=== PATIENT | female | born 1940 | race Caucasian/White ===

== ENCOUNTER 2017-08-29 14:15 | Emergency (ER) | payer MEDICARE, OTHER ==
[2017-08-29] MEDS ORDERED: methylPREDNISolone Sodium Succinate 125 MG/2 ML SDV IM ONE (15:19)
--- NOTE | 2017-08-29 15:25 | EDM.PDOC ---
ED HPI GENERAL MEDICAL PROBLEM - General Chief Complaint: Skin Complaint Stated Complaint: POISON ROXANNA Time Seen by Provider: 08/29/17 15:20 Source of Information: Reports: Patient History Limitations: Reports: No Limitations - History of Present Illness INITIAL COMMENTS - FREE TEXT/NARRATIVE: With poison roxanna while doing yard work about 10 days ago to left forearm. Was resolving. Now spreading again. Also rash to upper torso and chest since switching detergents. Also with new cold sore forming over the last 4 days. Onset: Gradual Duration: Getting Worse Location: Reports: Face, Neck, Chest, Abdomen, Back, Upper Extremity, Left Severity: Mild Improves with: Reports: None Worsens with: Reports: None Associated Symptoms: Reports: No Other Symptoms Generalized Pain Score (Numeric/FACES): 5 - Related Data Allergies Allergy/AdvReac Type Severity Reaction Status Date / Time No Known Allergies Allergy Verified 08/29/17 15:03 Home Meds: Home Meds Aspirin [Lo-Dose Aspirin EC] 81 mg PO DAILY 08/29/17 [History] Citalopram Hydrobromide [Celexa] 10 mg PO DAILY 08/29/17 [History] Levothyroxine Sodium [Synthroid] 1 tab PO DAILY 08/29/17 [History] Multivitamin [Multivitamins] 1 tab PO DAILY 08/29/17 [History] Simvastatin [Zocor] 10 mg PO BEDTIME 08/29/17 [History] Past Medical History HEENT History: Reports: Impaired Vision Cardiovascular History: Reports: High Cholesterol [employer] History: Reports: Psychiatric History: Reports: Anxiety, Depression Endocrine/Metabolic History: Reports: Hypothyroidism - Infectious Disease History Infectious Disease History: Reports: Chicken Pox - Past Surgical History HEENT Surgical History: Reports: Adenoidectomy, Tonsillectomy GI Surgical History: Reports: Colonoscopy Social & Family History - Tobacco Use Smoking Status *Q: Never Smoker Second Hand Smoke Exposure: No - Caffeine Use Caffeine Use: Reports: Coffee, Soda - Alcohol Use Days Per Week of Alcohol Use: 7 Number of Drinks Per Day: 1 Total Drinks Per Week: 7 - Recreational Drug Use Recreational Drug Use: No ED ROS GENERAL - Review of Systems Review Of Systems: See Below Constitutional: Reports: No Symptoms HEENT: Reports: No Symptoms Respiratory: Reports: No Symptoms Cardiovascular: Reports: No Symptoms Endocrine: Reports: No Symptoms GI/Abdominal: Reports: No Symptoms Musculoskeletal: Reports: No Symptoms Skin: Reports: Rash Neurological: Reports: No Symptoms Psychiatric: Reports: No Symptoms Hematologic/Lymphatic: Reports: No Symptoms Immunologic: Reports: No Symptoms ED EXAM, SKIN/RASH Exam: See Below Exam Limited By: No Limitations General Appearance: Alert, WD/WN, No Apparent Distress Respiratory/Chest: No Respiratory Distress, Lungs Clear, Normal Breath Sounds, No Accessory Muscle Use, Chest Non-Tender Cardiovascular: Normal Peripheral Pulses, Regular Rate, Rhythm, No Edema, No Gallop, No JVD, No Murmur, No Rub Extremities: Normal Inspection, Normal Range of Motion, Non-Tender, No Pedal Edema, Normal Capillary Refill Neurological: Alert, Oriented, CN II-XII Intact, Normal Cognition, Normal Gait, Normal Reflexes, No Motor/Sensory Deficits Psychiatric: Normal Affect, Normal Mood Skin: Warm, Dry, Intact, Rash, Other (poison roxanna area with vesicles to left forearm. Chest and back with macular rash diffuse. Left upper lip with small cold sore.) Course - Vital Signs Last Recorded V/S: Last Vital Signs Temp 94.6 F L 08/29/17 15:10 Pulse 76 08/29/17 15:10 Resp 16 08/29/17 15:10 BP 159/65 H 08/29/17 15:10 Pulse Ox 99 08/29/17 15:10 - Orders/Labs/Meds Orders: Active Orders 24 hr Category Date Time Status methylPREDNISolone Sod Succ [Solu-MEDROL] Med 08/29/17 15:19 Once 125 mg IM ONETIME ONE Departure - Departure Time of Disposition: 15:33 Disposition: Home, Self-Care 01 Condition: Good Clinical Impression: Contact dermatitis due to poison roxanna, Recurrent cold sores, Allergic dermatitis - Discharge Information Instructions: Contact Dermatitis, [id number] Referrals: PCP,None [Primary Care Provider] - Additional Instructions: Will treat allergic dermatitis with Solumedrol 125mg IM today in ER. Pt to take Zyrtec 10mg daily x next 10-14 days. May use Zanfel to poison roxanna as needed. Rx for Valtrex 1gm 2 tabs twice daily as needed for cold sore outbreak. Avoid detergent as is most likely cause of rash. - Problem List & Annotations (1) Contact dermatitis due to poison roxanna SNOMED Code(s): 754775818 Code(s): L23.7 - ALLERGIC CONTACT DERMATITIS DUE TO PLANTS, EXCEPT FOOD Status: Acute Priority: Low Current Visit: Yes (2) Recurrent cold sores SNOMED Code(s): 697061186 Code(s): B00.1 - HERPESVIRAL VESICULAR DERMATITIS Status: Acute Current Visit: Yes (3) Allergic dermatitis SNOMED Code(s): 720832180 Code(s): L23.9 - ALLERGIC CONTACT DERMATITIS, UNSPECIFIED CAUSE Status: Acute Current Visit: Yes - My Orders Last 24 Hours: My Active Orders 08/29/17 15:19 methylPREDNISolone Sod Succ [Solu-MEDROL] 125 mg IM ONETIME ONE - Assessment/Plan Last 24 Hours: My Active Orders 08/29/17 15:19 methylPREDNISolone Sod Succ [Solu-MEDROL] 125 mg IM ONETIME ONE
== END 2017-08-29 15:52 | disposition home or self-care (01) ==
LOC: JP.ED 14:15
DX: L23.7 Allergic contact dermatitis due to plants, except food (principal); B00.1 Herpesviral vesicular dermatitis; E78.00 Pure hypercholesterolemia, unspecified; E03.9 Hypothyroidism, unspecified; Z79.82 Long term (current) use of aspirin; Z79.899 Other long term (current) drug therapy
CPT/HCPCS: 96372; 99283; J2930

== ENCOUNTER 2022-10-27 18:51 | Emergency (ER) | payer MEDICARE, OTHER ==
[2022-10-27] MEDS ORDERED: Lidocaine 1% 5 ML VIAL INJECT ONE (21:31)
[2022-10-27] MEDS ORDERED: Bacitracin Oint 1 GM U/D Packet TOP ONE (21:31)
[2022-10-27] MEDS ORDERED: Diphtheria,Pertussis(Acell),Tetanus Vaccine 0.5 ML Syringe IM ONE (21:32)
== END 2022-10-27 22:54 | disposition home or self-care (01) ==
LOC: JP.ED 18:51
DX: S61.012A Laceration without foreign body of left thumb without damage to nail, initial encounter (principal); E03.9 Hypothyroidism, unspecified; E78.00 Pure hypercholesterolemia, unspecified; Z88.2 Allergy status to sulfonamides; Z79.82 Long term (current) use of aspirin; Z79.899 Other long term (current) drug therapy; Z23 Encounter for immunization; W26.8XXA Contact with other sharp object(s), not elsewhere classified, initial encounter
CPT/HCPCS: 12001; 90471; 90715; 99282-25